=== PATIENT | male | born 1930 | race Caucasian/White ===

== ENCOUNTER 2017-05-03 15:14 | Emergency (ER) | payer MEDICARE, OTHER ==
[2017-05-03 15:22] VITALS: BP 144/70
--- NOTE | 2017-05-03 15:37 | ED Physician Documentation ---
PD HPI HEENT FB - Chief complaint Chief Complaint: Heent - History obtained from History obtained from: Patient, Family - History of Present Illness Timing - onset: Other (Has bilateral cerumen impaction and is hard of hearing due to same. Requests removal.) Review of Systems Eyes: denies: Loss of vision, Decreased vision Ears: reports: Loss of hearing. denies: Ear pain, Drainage/discharge, Tinnitus/ ringing Nose: denies: Rhinorrhea / runny nose, Congestion PD PAST MEDICAL HISTORY - Past Medical History Cardiovascular: Hypertension, High cholesterol, [place] - Past Surgical History Cardiovascular: Coronary stent HEENT: Rhinoplasty - Present Medications Home Medications: Ambulatory Orders Medication Instructions Recorded Confirmed Aspirin 325 mg PO DAILY 06/21/15 05/03/17 Atorvastatin Calcium [Lipitor] 40 mg PO DAILY 06/21/15 05/03/17 Lisinopril 10 mg PO DAILY 06/21/15 05/03/17 Metoprolol Tartrate 25 mg PO BID 06/21/15 05/03/17 - Allergies Allergies/Adverse Reactions: Allergies Allergy/AdvReac Type Severity Reaction Status Date / Time No Known Drug Allergies Allergy Verified 06/12/15 19:26 - Social History Does the pt smoke?: No Smoking Status: Never smoker Does the pt drink ETOH?: No Does the pt have substance abuse?: No - Immunizations Immunizations are current?: Yes Immunizations: TDAP >10years/unknown PD ED PE NORMAL - Vitals Vital signs reviewed: Yes - General General: Alert and oriented X 3, No acute distress - HEENT HEENT: Other (bilateral cerumen impaction) - Neuro Neuro: Alert and oriented X 3, Normal speech - Psych Psych: Normal mood, Normal affect Results - Vitals Vitals: Vital Signs - 24 hr 05/03/17 15:20 Temperature 36.8 C Heart Rate 63 Respiratory 14 Rate Blood Pressure 144/70 H O2 Saturation 100 Oxygen O2 Source Room air Procedures - General procedure General procedure: Cerumen was disimpacted from both sides using a spoon with relief of symptoms. Departure - Departure Disposition: 01 Home, Self Care Clinical Impression: Excessive cerumen in both ear canals Condition: Good Record reviewed to determine appropriate education?: Yes Instructions: Earwax Impacted Comments: Your blood pressure was elevated today on check in to the emergency department. This does not mean that you have hypertension, it is a common phenomenon to check into the emergency department and have elevated blood pressure. I recommend that you see your primary care physician within the week to have it rechecked when you're feeling better.
== END 2017-05-03 15:41 | disposition home or self-care (01) ==
LOC: ED 15:14
DX: H61.23 Impacted cerumen, bilateral (principal); I10 Essential (primary) hypertension; I25.2 Old myocardial infarction; E78.00 Pure hypercholesterolemia, unspecified; Z79.82 Long term (current) use of aspirin
CPT/HCPCS: 69210; 99282; 99283

== ENCOUNTER 2018-06-03 08:43 | Emergency (ER) | payer MEDICARE ==
--- NOTE | 2018-06-03 10:04 | ED Physician Documentation ---
PD HPI URI - Stated complaint Stated Complaint: COUGH - Chief complaint Chief Complaint: General - History obtained from History obtained from: Patient - History of Present Illness Timing duration: Weeks (2) Timing details: Still present Associated symptoms: Productive cough - Treatment prior to arrival Treatment prior to arrival: TheraFlu without relief. - Additional information Additional information: The patient is an 87-year-old male who presents with cough and congestion of 2 weeks duration. His cough is productive of sputum. He denies fever, chest pain , or shortness of breath. He does report fatigue and decreased appetite. He has had similar symptoms in the past with bronchitis. He has been using TheraFlu without relief. He smokes a pipe. Review of Systems Constitutional: denies: Fever Eyes: denies: Irritation Ears: denies: Ear pain Nose: reports: Congestion Throat: denies: Sore throat Cardiac: denies: Chest pain / pressure Respiratory: reports: Cough. denies: Dyspnea GI: denies: Abdominal Pain, Nausea, Vomiting : denies: Dysuria Skin: denies: Rash Musculoskeletal: denies: Extremity swelling Neurologic: denies: Headache PD PAST MEDICAL HISTORY - Past Medical History Cardiovascular: Hypertension, High cholesterol, [place] Endocrine/Autoimmune: None - Past Surgical History Cardiovascular: Coronary stent HEENT: Rhinoplasty - Present Medications Home Medications: Ambulatory Orders Medication Instructions Recorded Confirmed Aspirin 325 mg PO DAILY 06/21/15 05/03/17 Atorvastatin Calcium [Lipitor] 40 mg PO DAILY 06/21/15 05/03/17 Lisinopril 10 mg PO DAILY 06/21/15 05/03/17 Metoprolol Tartrate 25 mg PO BID 06/21/15 05/03/17 Azithromycin [Zithromax] 250 mg PO DAILY #6 tablet 06/03/18 - Allergies Allergies/Adverse Reactions: Allergies Allergy/AdvReac Type Severity Reaction Status Date / Time No Known Drug Allergies Allergy Verified 06/12/15 19:26 - Social History Does the pt smoke?: No Smoking Status: Never smoker Does the pt drink ETOH?: No Does the pt have substance abuse?: No - Immunizations Immunizations are current?: Yes Immunizations: TDAP >10years/unknown PD ED PE NORMAL - Vitals Vital signs reviewed: Yes (Borderline systolic hypertension.) - General General: Alert and oriented X 3, Well developed/nourished - HEENT HEENT: Atraumatic, Pharynx benign - Neck Neck: No adenopathy, No JVD - Cardiac Cardiac: RRR - Respiratory Respiratory: Clear bilaterally - Abdomen Abdomen: Soft, Non tender - Back Back: No CVA TTP - Derm Derm: No rash - Extremities Extremities: No edema, No calf tenderness / cord - Neuro Neuro: Alert and oriented X 3, No motor deficit, Normal speech Results - Vitals Vitals: Vital Signs - 24 hr 06/03/18 06/03/18 09:06 09:09 Temperature 36.3 C L Heart Rate 78 74 Respiratory 16 18 Rate Blood Pressure 135/61 H 126/60 O2 Saturation 98 98 Oxygen O2 Source Room air PD MEDICAL DECISION MAKING - ED course Complexity details: considered differential, d/w patient, d/w family ED course: The patient's presentation is most consistent with acute bronchitis. His presentation does not suggest pneumonia or congestive heart failure, I doubt pulmonary embolus. Given that he is a smoker, he is at increased risk for bacterial bronchial infection. He is being discharged with prescription for Zithromax. I discussed with him and his the expected course of illness, antibiotic treatment and outpatient follow-up, as well as potentially worrisome signs or symptoms that should prompt reevaluation in the emergency department. - Sepsis Event Vital Signs: Vital Signs - 24 hr 06/03/18 06/03/18 09:06 09:09 Temperature 36.3 C L Heart Rate 78 74 Respiratory 16 18 Rate Blood Pressure 135/61 H 126/60 O2 Saturation 98 98 Oxygen O2 Source Room air Departure - Departure Disposition: 01 Home, Self Care Clinical Impression: Acute bronchitis Qualifiers: Bronchitis organism: unspecified organism Qualified Code(s): J20.9 - Acute bronchitis, unspecified Condition: Stable Instructions: ED Upper Resp Infec Abx Tx Prescriptions: Azithromycin [Zithromax] 250 mg PO DAILY #6 tablet Comments: Take antibiotic daily as prescribed. You can use Tylenol or ibuprofen if needed for fever or discomfort. Return to the emergency department if you develop increasing difficulty breathing, or otherwise worsening symptoms. Discharge Date/Time: 06/03/18 10:18
[2018-06-03 10:18] VITALS: BP 126/60
== END 2018-06-03 10:18 | disposition home or self-care (01) ==
LOC: ED 08:43
DX: F17.200 Nicotine dependence, unspecified, uncomplicated (principal); J20.9 Acute bronchitis, unspecified
CPT/HCPCS: 99283

== ENCOUNTER 2018-06-08 18:43 | Emergency (ER) | payer MEDICARE ==
--- NOTE | 2018-06-08 19:23 | XRAY Report ---
Procedure Date: 06/08/2018 Accession Number: [id number] / [id number] Procedure: XR - Chest 2 View X-Ray CPT Code: 64348 FULL RESULT: EXAM: CHEST RADIOGRAPHY EXAM DATE: 06/08/2018 07:09 PM. CLINICAL HISTORY: Cough, shortness of breath. COMPARISON: 05/30/2008. TECHNIQUE: 2 views. FINDINGS: Lungs/Pleura: No focal opacities evident. No pleural effusion. No pneumothorax. Normal volumes. Mediastinum: Heart and mediastinal contours are unremarkable. Other: None. IMPRESSION: Normal 2-view chest radiography. [facility]
[2018-06-08 20:04] LABS: BASOPHILS # (AUTO) 0.1 10^3/uL (0.0-0.1); BASOPHILS % (AUTO) 0.5 %; EOSINOPHILS # (AUTO) 0.1 10^3/uL (0.0-0.7); EOSINOPHILS % (AUTO) 0.4 %; HGB - HEMOGLOBIN 13.5 g/dL (14.0-18.0); LYMPHOCYTES # (AUTO) 1.4 10^3/uL (1.5-3.5); LYMPHOCYTES % (AUTO) 8.8 %; MEAN CORPUSCULAR HEMOGLOBIN 32.4 pg (27.0-31.0); MEAN CORPUSCULAR HGB CONC 35.2 g/dL (32.0-36.0); MEAN CORPUSCULAR VOLUME 91.9 fL (80.0-94.0); MEAN PLATELET VOLUME 7.7 fL (7.4-11.4); MONOCYTES # (AUTO) 1.2 10^3/uL (0.0-1.0); MONOCYTES % (AUTO) 7.3 %; NEUTROPHILS # (AUTO) 13.2 10^3/uL (1.5-6.6); PLT - PLATELET COUNT 322 10^3/uL (130-450); RED BLOOD COUNT 4.16 10^6/uL (4.70-6.10); RED CELL DISTRIBUTION WIDTH 12.9 % (12.0-15.0)
[2018-06-08 20:17] LABS: ALBUMIN 3.4 g/dL (3.2-5.5); ALBUMIN/GLOBULIN RATIO 0.8 (1.0-2.2); BILIRUBIN,TOTAL 0.9 mg/dL (0.2-1.0); CALCIUM 9.1 mg/dL (8.5-10.3); CREATININE 0.9 mg/dL (0.6-1.2); TOTAL PROTEIN 7.7 g/dL (6.7-8.2)
--- NOTE | 2018-06-08 20:23 | ED Physician Documentation ---
History of Present Illness - Stated complaint Stated Complaint: SOA/ABD PX - Chief complaint Chief Complaint: Resp - History obtained from History obtained from: Patient - History of Present Illness Timing: How many weeks ago (2) Pain level now: 9 Improved by: no ameliorating factors Worsened by: cough - Additonal information Additional information: visiting [place] from [place]. c/o 2 weeks of cough, dizziness, fatigue, and epigastric pain that is predominantly when he coughs. T+R from this ED 5 days ago, dx. bronchitis and rx (and completed) z-pack. Returns due to ongoing symptoms Review of Systems Constitutional: reports: Fatigue. denies: Fever, Chills, Sweats Cardiac: denies: Chest pain / pressure, Palpitations, Pedal edema Respiratory: reports: Dyspnea, Cough. denies: Hemoptysis, Wheezing GI: reports: Abdominal Pain. denies: Nausea, Vomiting, Constipation, Diarrhea : denies: Dysuria, Frequency Musculoskeletal: denies: Back pain Neurologic: reports: Generalized weakness PD PAST MEDICAL HISTORY - Past Medical History Past Medical History: Yes Cardiovascular: Hypertension, High cholesterol, [place] Endocrine/Autoimmune: None - Past Surgical History Past Surgical History: Yes Cardiovascular: Coronary stent HEENT: Rhinoplasty - Present Medications Home Medications: Ambulatory Orders Medication Instructions Recorded Confirmed Aspirin 325 mg PO DAILY 06/21/15 05/03/17 Atorvastatin Calcium [Lipitor] 40 mg PO DAILY 06/21/15 05/03/17 Lisinopril 10 mg PO DAILY 06/21/15 05/03/17 Metoprolol Tartrate 25 mg PO BID 06/21/15 05/03/17 Azithromycin [Zithromax] 250 mg PO DAILY #6 tablet 06/03/18 Levofloxacin [Levaquin] 500 mg PO DAILY #10 tablet 06/08/18 - Allergies Allergies/Adverse Reactions: Allergies Allergy/AdvReac Type Severity Reaction Status Date / Time No Known Drug Allergies Allergy Verified 06/08/18 18:52 - Social History Does the pt smoke?: No Smoking Status: Never smoker Does the pt drink ETOH?: No Does the pt have substance abuse?: No - Immunizations Immunizations are current?: Yes Immunizations: TDAP >10years/unknown - POLST Patient has POLST: No PD ED PE NORMAL - Vitals Vital signs reviewed: Yes - General General: Alert and oriented X 3, No acute distress, Well developed/nourished - HEENT HEENT: PERRL, EOMI, Moist mucous membranes - Neck Neck: Supple, no meningeal sign - Cardiac Cardiac: RRR - Respiratory Respiratory: No respiratory distress, Clear bilaterally - Derm Derm: Normal color, Warm and dry - Extremities Extremities: No edema - Neuro Neuro: Alert and oriented X 3, welder 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, No motor deficit, No sensory deficit, Normal speech Eye Opening: Spontaneous Motor: Obeys Commands Verbal: Oriented GCS Score: 15 PD ED PE EXPANDED - Cardiac Cardiac: Murmur Present (2/6 MITCH at cardiac base) Results - Vitals Vitals: Vital Signs - 24 hr 06/08/18 06/08/18 06/08/18 18:46 20:45 22:57 Temperature 37 C 36.5 C Heart Rate 66 82 78 Respiratory 20 16 17 Rate Blood Pressure 152/67 H 138/63 H 178/69 H O2 Saturation 93 94 95 Oxygen O2 Source Room air - EKG (time done) No standard instances Rate: Rate (enter#) (69) Rhythm: NSR Taft: Normal Intervals: Normal MS QRS: Normal Ischemia: Normal ST segments - Labs Labs: Laboratory Tests 06/08/18 06/08/18 06/08/18 20:00 20:00 20:00 WBC 16.0 H RBC 4.16 L Hgb 13.5 L Hct 38.2 L MCV 91.9 MCH 32.4 H MCHC 35.2 RDW 12.9 Plt Count 322 MPV 7.7 Neut # (Auto) 13.2 H Lymph # (Auto) 1.4 L Isabella # (Auto) 1.2 H Eos # (Auto) 0.1 Baso # (Auto) 0.1 Absolute Nucleated RBC 0.01 Nucleated RBC % 0.1 Sodium 133 L Potassium 4.6 Chloride 99 L Carbon Dioxide 26 Anion Gap 8.0 BUN 22 H Creatinine 0.9 Estimated GFR (MDRD) 80 L Glucose 126 H Calcium 9.1 Total Bilirubin 0.9 AST 38 ALT 40 Alkaline Phosphatase 80 Troponin I < 0.04 B-Natriuretic Peptide Total Protein 7.7 Albumin 3.4 Globulin 4.3 H Albumin/Globulin Ratio 0.8 L Lipase 26 06/08/18 20:00 WBC RBC Hgb Hct MCV MCH MCHC RDW Plt Count MPV Neut # (Auto) Lymph # (Auto) Isabella # (Auto) Eos # (Auto) Baso # (Auto) Absolute Nucleated RBC Nucleated RBC % Sodium Potassium Chloride Carbon Dioxide Anion Gap BUN Creatinine Estimated GFR (MDRD) Glucose Calcium Total Bilirubin AST ALT Alkaline Phosphatase Troponin I B-Natriuretic Peptide 226 H Total Protein Albumin Globulin Albumin/Globulin Ratio Lipase - Rads (name of study) chest xray Radiology: Prelim report reviewed, See rad report CT chest Radiology: Prelim report reviewed, See rad report PD MEDICAL DECISION MAKING - ED course Complexity details: reviewed old records, reviewed results, re-evaluated patient , considered differential, d/w patient, d/w family - Sepsis Event Vital Signs: Vital Signs - 24 hr 06/08/18 06/08/18 06/08/18 18:46 20:45 22:57 Temperature 37 C 36.5 C Heart Rate 66 82 78 Respiratory 20 16 17 Rate Blood Pressure 152/67 H 138/63 H 178/69 H O2 Saturation 93 94 95 Oxygen O2 Source Room air Departure - Departure Disposition: 01 Home, Self Care Clinical Impression: Pneumonia Condition: Good Instructions: ED Pneumonia Adult Prescriptions: Levofloxacin [Levaquin] 500 mg PO DAILY #10 tablet Discharge Date/Time: 06/08/18 23:50
[2018-06-08] MEDS ORDERED: SODIUM CHLORIDE 0.9% 500 ML IV STA (20:43)
[2018-06-08] MEDS ORDERED: IOPAMIDOL-300 100 ML VIAL ONE (21:15)
[2018-06-08] MEDS ORDERED: IOPAMIDOL-300 100 ML VIAL IVP ONE (21:24)
--- NOTE | 2018-06-08 21:45 | CT Report ---
Procedure Date: 06/08/2018 Accession Number: [id number] / [id number] Procedure: CT - Chest Angio (PE) CPT Code: FULL RESULT: EXAM: CT ANGIOGRAM CHEST EXAM DATE: 06/08/2018 09:27 PM. CLINICAL HISTORY: Dyspnea, cough, chest pain. COMPARISON: Radiograph today. TECHNIQUE: Routine helical imaging was performed through the chest in the pulmonary arterial phase. IV Contrast: ISOVUE 300 80mL. Reconstructions: Coronal 3-D MIP reconstructions.Sagittal and coronal. In accordance with CT protocol optimization, one or more of the following dose reduction techniques were utilized for this exam: automated exposure control, adjustment of mA and/or KV based on patient size, or use of iterative reconstructive technique. FINDINGS: Pulmonary Arteries: Diagnostic quality: Adequate through the segmental arteries. No evidence for acute or chronic pulmonary emboli. Heart: Calcification in left anterior descending and circumflex coronary arteries. Heart size normal. RV/LV is within normal limits. There is no interventricular septal bowing. There is no reflux of contrast material in the IVC. Lungs/Pleura: Patchy mucus plugging in the basilar lower lobes bilaterally and mild patchy predominantly peribronchial consolidation in the posterior medial basilar lower lobes bilaterally. There is also some minimal patchy opacity in the superior segment right lower lobe. There are some tiny wispy peribronchial densities laterally in the posterior segment right upper lobe. Respiratory motion artifact is noted. No generalized interstitial abnormality is identified. There is no pleural fluid or pneumothorax. Mediastinum: Minimally prominent subcarinal and bilateral hilar lymph nodes which may be reactive. Thyroid gland and esophagus are unremarkable. Thoracic Aorta: Mild calcification. No aneurysm or dissection. Upper Abdomen: Unremarkable. Other: Mild multilevel lower cervical, thoracic, and lumbar degenerative disk disease. IMPRESSION: 1. No pulmonary embolism is identified. 2. Mild bronchopneumonia greatest in the posterior medial lung bases bilaterally. There is patchy mucus plugging in the bases, and a component of aspiration is not excluded. [facility]
[2018-06-08] MEDS ORDERED: cefTRIAXone 1 GM in SODIUM CHLORIDE 0.9% MINIBAG 100 ML IV STA (22:10)
[2018-06-08 22:57] VITALS: BP 178/69
== END 2018-06-08 23:50 | disposition home or self-care (01) ==
LOC: ED 18:43
DX: J18.9 Pneumonia, unspecified organism (principal); I10 Essential (primary) hypertension
CPT/HCPCS: 36415; 71046; 71275; 80053; 83690; 83880; 84484; 85025; 93005; 96374; 99283; Q9967